=== PATIENT | male | born 1980 | race Caucasian/White ===

== ENCOUNTER 2020-11-09 02:59 | Emergency (ER) | payer SELFPAY ==
[2020-11-09] MEDS ORDERED: Fluorescein Opthalmic Strip ONE (03:20)
[2020-11-09] MEDS ORDERED: Tetracaine 0.5% PF 4 ML BOT ONE (03:20)
== END 2020-11-09 04:25 | disposition left against medical advice (07) ==
LOC: MADERS 02:59
DX: H57.12 Ocular pain, left eye (principal); H40.052 Ocular hypertension, left eye; F17.290 Nicotine dependence, other tobacco product, uncomplicated
CPT/HCPCS: 99283

== ENCOUNTER 2021-08-01 17:52 | Emergency (ER) | payer SELFPAY ==
[2021-08-01] MEDS ORDERED: diphenhydrAMINE 25 MG CAP ONE (18:07)
[2021-08-01] MEDS ORDERED: Ondansetron ODT 4 MG TAB ONE (18:18)
== END 2021-08-01 18:41 | disposition home or self-care (01) ==
LOC: MADERS 17:52
DX: T63.441A Toxic effect of venom of bees, accidental (unintentional), initial encounter (principal); R60.9 Edema, unspecified; F17.290 Nicotine dependence, other tobacco product, uncomplicated
CPT/HCPCS: 99282; Q0162